=== PATIENT | female | born 1950 | race Caucasian/White ===

== ENCOUNTER 2022-09-11 13:17 | Outpatient (CLI) | payer MEDICARE, OTHER | END 2022-09-11 13:18 | disposition home or self-care (01) | LOC: CSHLAB 13:17 | PROVIDERS: ATTEND Student in an Organized Health Care Education/Training Program | DX: Z01.818 Encounter for other preprocedural examination (principal) | CPT/HCPCS: 80048; 85027; 86850; 86900; 86901; 93005; 93010 ==